=== PATIENT | female | born 1965 | race Caucasian/White ===

== ENCOUNTER 2025-10-07 09:26 | Outpatient (CLI) | payer MEDICAID ==
--- NOTE | 2025-10-07 12:40 | PROCEDURE NOTE ---
Procedure Note Providers to CC ~ Description: Gas EEG Note # Demographics Type of EEG Read: - Routine EEG - video Patient Location: Outpatient First Name: Summer Last Name: Yanira Date of : 1965 Age: 60 Gender: Female Facility: [facility] Time of Initial Page (): 10/07/2025 11:48 First Contact with Site ( Time): 10/07/2025 11:50 # EEG Interpretation Start Time of EEG Read (): 10/07/2025 10:04 Stop Time of EEG Read (): 10/07/2025 10:26 Duration: 0h 22m Technical Details: - The EEG electrodes were placed using the standard International 10-20 system of electrode placement. Video and an accessory EKG lead were used during the course of this study. - This study was recorded using the [employer] EEG software Indication: - altered mental status # Description Photic Stimulation: Performed Hyperventilation: NOT performed Phases Captured: - awake - drowsy Symmetry: symmetric Posterior Dominant Rhythm: - present, attenuates on eye opening 10 Hz Predominant Frequencies: - non-posterior dominant alpha (8-12 Hz) - frequent (10-49%) Amplitude: normal Reactivity: yes Variability: yes Continuity: continuous EKG: NSR # Abnormalities Stimulation: - photic stimulation does NOT cause abnormalities Epileptiform Abnormalities: - NOT present Focal Slowing: no Seizure: - NOT present # Impression Impression: normal # Clinical Correlation Clinical Correlation: A normal EEG does not exclude nor support the diagnosis of epilepsy. # Logistics Telemedicine: remote EEG review: EEG reviewed remotely # Demographics First Name: Summer Last Name: Yanira Facility: [facility] VALENCIA SAL MD Oct 07, 2025 12:40
== END 2025-10-07 23:59 | disposition home or self-care (01) ==
LOC: RAD 09:26
PROVIDERS: ATTEND Nurse Practitioner Family
DX: G43.409 Hemiplegic migraine, not intractable, without status migrainosus (principal); R29.818 Other symptoms and signs involving the nervous system; R53.1 Weakness
CPT/HCPCS: 95816